=== PATIENT | male | born 1950 | race Caucasian/White ===

== ENCOUNTER 2020-05-30 09:11 | Inpatient (IN) ==
[2020-05-30] MEDS ORDERED: DEXTROSE 50% 25 GM/50 ML VIAL IV PRN (09:20)
[2020-05-30] MEDS ORDERED: GLUCAGON 1 MG VIAL IM PRN (09:20)
[2020-05-30 10:01] LABS: ABG Base Excess 0.2 MMOL/L (-2.5-2.5); ABG HCO3 24.6 MMOL/L (20-26); ABG PCO2 39.9 MM HG (35-48); ABG PH 7.403 (7.35-7.45); ABG PO2 85.3 MM HG (80-95); ABG TCO2 21.4 MMOL/L (23-27)
[2020-05-30] MEDS ORDERED: MORPHINE 4 MG/1 ML VIAL IV PRN (10:55)
[2020-05-30] MEDS ORDERED: NITROGLYCERIN SL 0.4 MG TABLET SL PRN (10:55)
[2020-05-30] MEDS ORDERED: CLORAZEPATE 3.75 MG TABLET PO PRN (10:55)
[2020-05-30] MEDS ORDERED: hydrALAZINE 20 MG/1 ML VIAL IV PRN (10:56)
[2020-05-30 11:29] LABS: Albumin 3.9 G/DL (3.4-5.0); Bilirubin,Total 0.4 MG/DL (0.2-1.0); Calcium 8.9 MG/DL (8.5-10.1); Osmolality,Calculated 278.4 MOS/KG (273-304); Potassium 4.6 MMOL/L (3.5-5.1); Total Protein 7.5 G/DL (6.4-8.2)
[2020-05-30] MEDS: CHLORHEXIDINE 0.12% ORAL RINSE 60 ML BOTTLE SWISH/SPIT SCH ×2 (11:34→20:24)
[2020-05-30] MEDS: CHLORHEXIDINE 4% SOLN 118 ML BOTTLE TOP SCH ×2 (13:40→20:25)
[2020-05-30] MEDS: SODIUM CHLORIDE 0.9% 1,000 ML IV SCH (20:25)
[2020-05-30 23:37] LABS: Basophils % 0.8 % (0.0-0.8); Eosinophils # 0.1 10*3/uL (0.0-0.87); Eosinophils % 1.9 % (0.00-10.9); Hematocrit 37.4 VOL% (42.0-52.0); Hemoglobin 12.5 GM/DL (14.0-18.0); Immature Granulocytes % 0.2 %; Immature Granulocytes Absolute 0.01 #; Lymphocytes # 1.8 10*3/uL (1.4-4.0); Lymphocytes % 36.6 % (21.2-54.2); Mean Corpuscular HGB Conc 33.4 GM/DL (32-36); Mean Corpuscular Volume 88.6 FL (87-102); Monocytes % 12.3 % (1.7-12.7); Neutrophils % 48.2 % (38.7-73.9); Platelet Count 195 T/CUMM (130-400); Red Blood Count 4.22 MC/CUMM (3.8-5.5); Red Cell Distribution Width 13.7 % (9.3-17.3); White Blood Count 4.8 T/CUMM (4-12)
[2020-05-31] MEDS: CHLORHEXIDINE 4% SOLN 118 ML BOTTLE TOP SCH (03:21)
[2020-05-31] MEDS ORDERED: PAPAVERINE 60 MG/2 ML VIAL ONE (05:00)
[2020-05-31] MEDS ORDERED: VANCOMYCIN 1,000 MG VIAL ONE (05:00)
[2020-05-31] MEDS ORDERED: VANCOMYCIN 500 MG VIAL ONE (05:00)
[2020-05-31] MEDS ORDERED: SODIUM CHLORIDE 0.9% 0 ML IV ONE (05:30)
[2020-05-31] MEDS ORDERED: LIDOCAINE 2% 5 ML VIAL ONE ×2 (05:30→11:00)
[2020-05-31] MEDS ORDERED: HEPARIN/NACL 0.9% 2 UNITS/ML 1,000 UNIT/500 ML BAG IV ONE (05:30)
[2020-05-31] MEDS ORDERED: CALCIUM CHLORIDE 1,000 MG/10 ML VIAL IV ONE (05:30)
[2020-05-31] MEDS ORDERED: AMINOCAPROIC ACID 5,000 MG/20 ML VIAL ONE (05:30)
[2020-05-31] MEDS ORDERED: PHENYLEPHRINE DRIP 20 MG/250 ML PREMIX IV ONE (05:30)
[2020-05-31] MEDS ORDERED: SODIUM CHLORIDE 0.9% 250 ML IV ONE (05:30)
[2020-05-31] MEDS ORDERED: SODIUM CHLORIDE 0.9% 1,000 ML IV ONE (05:30)
[2020-05-31] MEDS ORDERED: LACTATED RINGERS 1,000 ML IV ONE (05:30)
[2020-05-31] MEDS ORDERED: VECURONIUM 10 MG VIAL IV ONE (05:30)
[2020-05-31] MEDS ORDERED: SUFentanil 250 MCG/5 ML AMP ONE ×2 (05:31→07:43)
[2020-05-31] MEDS ORDERED: MIDAZOLAM 10 MG/2 ML VIAL ONE ×4 (05:31)
[2020-05-31] MEDS: SODIUM CHLORIDE 0.9% 1,000 ML IV SCH (05:45)
[2020-05-31] MEDS ORDERED: FAMOTIDINE 20 MG TABLET PO ONE (06:00)
[2020-05-31] MEDS ORDERED: DIAZEPAM 5 MG TABLET PO ONE (06:00)
[2020-05-31 07:37] LABS: ABG Base Excess -0.2 MMOL/L (-2.5-2.5); ABG HCO3 24.3 MMOL/L (20-26); ABG PCO2 35.8 MM HG (35-48); ABG PH 7.428 (7.35-7.45); ABG TCO2 20.8 MMOL/L (23-27); Glucose Heart Surgery 97 MG/DL (74-106); Hematocrit Heart Surgery 37.5 PERCENT (42-52); Hemoglobin Heart Surgery 12.2 G/DL (14.0-18.0); Ionized Calcium Arterial 1.14 MMOL/L (1.21-1.46); PCO2 Patient Temp Arterial 35.8 MMHG; PH Patient Temp Arterial 7.428; Patient Temperature 37 CELCIUS; Potassium Heart/CVR 3.6 MMOL/L (3.5-5.1); Sodium Heart/CVR 141 MMOL/L (135-145)
[2020-05-31] MEDS ORDERED: SODIUM BICARBONATE 50 MEQ/50 ML VIAL IV ONE ×2 (07:43→11:01)
[2020-05-31] MEDS ORDERED: CALCIUM CHLORIDE 1,000 MG/10 ML SYRINGE IV ONE (07:44)
[2020-05-31] MEDS ORDERED: POTASSIUM CHLORIDE RIDER 100 ML IV ONE (07:44)
[2020-05-31] MEDS ORDERED: NITROPRUSSIDE 50 MG/2 ML VIAL ONE (07:44)
[2020-05-31] MEDS ORDERED: PHENYLEPHRINE DRIP 40 MG/250 ML PREMIX IV ONE (07:44)
[2020-05-31 07:47] LABS: Bilirubin,Urine Negative (Negative); Blood, Urine Moderate mg/dL (Negative); Glucose,Urine (UA) Negative (Negative); Ketones,Urine Negative (Negative); Nitrite,Urine Negative (Negative); Protein,Urine Negative; RBC,Urine 1 /HPF (0-4); Urine Appearance CLEAR (Clear); Urine Color Straw (Yellow); Urine Specific Gravity 1.004 (1.001-1.035); Urine Urobilinogen < 2.0 EU/DL (0.2-1.0); WBC,Urine 1 /HPF (0-6)
[2020-05-31 09:19] LABS: Hematocrit Heart Surgery 28.8 PERCENT (42-52); Hemoglobin Heart Surgery 9.3 G/DL (14.0-18.0); PH Patient Temp Venous 7.466; PO2 Patient Temp Venous 38.9 MM HG; Potassium Heart/CVR 4.6 MMOL/L (3.5-5.1); VBG Base Excess 0.5 MEQ/L (0-4); VBG HCO3 24.7 MEQ/L (24-28); VBG Oxygen Saturation 84.6 %; VBG PCO2 38.1 MMHG (41-51); VBG PH 7.421; VBG PO2 47.8 MMHG (17-40); VBG Total CO2 22.8 MMOL/L
[2020-05-31 09:52] LABS: Hematocrit Heart Surgery 31.2 PERCENT (42-52); Hemoglobin Heart Surgery 10.1 G/DL (14.0-18.0); PCO2 Patient Temp Venous 32.2 MM HG; PH Patient Temp Venous 7.478; PO2 Patient Temp Venous 36.4 MM HG; Potassium Heart/CVR 4.2 MMOL/L (3.5-5.1); VBG Base Excess 0.9 MEQ/L (0-4); VBG Oxygen Saturation 84.6 %; VBG PCO2 39.1 MMHG (41-51); VBG PH 7.419; VBG PO2 47.9 MMHG (17-40)
[2020-05-31] MEDS ORDERED: SEVOFLURANE 1 UNIT/15 MINUTE INH ONE (09:53)
[2020-05-31] MEDS: CHLORHEXIDINE 0.12% ORAL RINSE 60 ML BOTTLE SWISH/SPIT SCH ×2 (10:07→21:45)
[2020-05-31] MEDS: CEFUROXIME INJ 1,500 MG in SODIUM CHLORIDE 0.9% 100 ML IV ONE ×2 (10:07→11:49)
[2020-05-31 10:22] LABS: Hematocrit Heart Surgery 33.6 PERCENT (42-52); Hemoglobin Heart Surgery 10.9 G/DL (14.0-18.0); PCO2 Patient Temp Venous 39.1 MM HG; PH Patient Temp Venous 7.426; PO2 Patient Temp Venous 44.1 MM HG; Potassium Heart/CVR 4.3 MMOL/L (3.5-5.1); VBG Base Excess 1.4 MEQ/L (0-4); VBG HCO3 25.3 MEQ/L (24-28); VBG Oxygen Saturation 80.5 %; VBG PCO2 39.1 MMHG (41-51); VBG PH 7.426; VBG PO2 44.1 MMHG (17-40); VBG Total CO2 23.2 MMOL/L
[2020-05-31] MEDS ORDERED: methylPREDNISolone SOD SUC 1,000 MG/8 ML VIAL ONE (11:00)
[2020-05-31] MEDS ORDERED: DEXTROSE 5% KCL 20 MEQ 20 MEQ/1,000 ML BAG IV ONE (11:00)
[2020-05-31] MEDS ORDERED: MANNITOL 100 GM/500 ML BAG IV ONE (11:00)
[2020-05-31] MEDS ORDERED: MAGNESIUM SULFATE 5 GM/10 ML VIAL IV ONE (11:00)
[2020-05-31] MEDS ORDERED: ALBUMIN 25% 25 GM/100 ML VIAL IV ONE (11:00)
[2020-05-31 11:01] LABS: ABG Base Excess -0.3 MMOL/L (-2.5-2.5); ABG HCO3 24.2 MMOL/L (20-26); ABG PH 7.394 (7.35-7.45); ABG TCO2 21.1 MMOL/L (23-27); Glucose Heart Surgery 164 MG/DL (74-106); Ionized Calcium Arterial 1.29 MMOL/L (1.21-1.46); PH Patient Temp Arterial 7.394; Patient Temperature 37 CELCIUS; Potassium Heart/CVR 3.9 MMOL/L (3.5-5.1); Sodium Heart/CVR 139 MMOL/L (135-145)
[2020-05-31] MEDS ORDERED: FUROSEMIDE 20 MG/2 ML VIAL ONE (11:01)
[2020-05-31] MEDS ORDERED: PROTAMINE SULFATE 250 MG/25 ML VIAL IV ONE (11:01)
[2020-05-31] MEDS ORDERED: PROTAMINE SULFATE 50 MG/5 ML VIAL IV ONE ×2 (11:01→11:43)
[2020-05-31] MEDS ORDERED: HEPARIN 10,000 UNIT/10 ML VIAL ONE (11:05)
[2020-05-31] MEDS ORDERED: INSULIN REGULAR DRIP 100 ML IV SCH (11:42)
[2020-05-31] MEDS ORDERED: CALCIUM CHLORIDE 1,000 MG/10 ML SYRINGE IV PRN (11:42)
[2020-05-31] MEDS ORDERED: MAGNESIUM SULF RIDER 2 GM in PREMIX 1 EACH IV PRN (11:42)
[2020-05-31] MEDS ORDERED: ACETAMINOPHEN 650 MG SUPP RECTAL PRN (11:42)
[2020-05-31] MEDS ORDERED: PHENYLEPHRINE DRIP 40 MG/250 ML PREMIX IV PRN (11:42)
[2020-05-31] MEDS ORDERED: MAGNESIUM SULF RIDER 4 GM in PREMIX 1 EACH IV PRN (11:42)
[2020-05-31] MEDS ORDERED: SODIUM CHLORIDE 0.45% 1,000 ML IV SCH ×2 (11:42)
[2020-05-31] MEDS ORDERED: MORPHINE 10 MG/1 ML VIAL IV PRN (11:42)
[2020-05-31] MEDS ORDERED: MIDAZOLAM 2 MG/2 ML VIAL IV PRN (11:42)
[2020-05-31] MEDS ORDERED: VECURONIUM 10 MG VIAL IV PRN ×2 (11:42)
[2020-05-31] MEDS ORDERED: NITROPRUSSIDE 100 MG in DEXTROSE 5% 250 ML IV PRN (11:42)
[2020-05-31] MEDS ORDERED: POTASSIUM CHLORIDE RIDER 10 MEQ in PREMIX 1 EACH IV PRN (11:42)
[2020-05-31] MEDS ORDERED: CHLORHEXIDINE 4% SOLN 118 ML BOTTLE TOP PRN (11:42)
[2020-05-31] MEDS ORDERED: DEXTROSE 50% 25 GM/50 ML VIAL IV PRN ×2 (11:42)
[2020-05-31] MEDS ORDERED: ONDANSETRON 4 MG/2 ML VIAL IV PRN (11:42)
[2020-05-31] MEDS ORDERED: INSULIN REGULAR 100 UNIT/ML IV ONE (11:42)
[2020-05-31] MEDS ORDERED: INSULIN REGULAR 100 UNIT/ML IV PRN (11:42)
[2020-05-31] MEDS ORDERED: MORPHINE 4 MG/1 ML VIAL IV PRN (11:42)
[2020-05-31 12:04] LABS: ABG HCO3 23.3 MMOL/L (20-26); ABG PCO2 37.3 MM HG (35-48); ABG PH 7.414 (7.35-7.45); ABG PO2 280.4 MM HG (80-95); ABG TCO2 24.5 MMOL/L (23-27); Glucose Heart Surgery 134 MG/DL (74-106); Hemoglobin Heart Surgery 11.2 G/DL (14.0-18.0); Potassium Heart/CVR 3.4 MMOL/L (3.5-5.1)
[2020-05-31 12:07] LABS: Basophils % 0.5 % (0.0-0.8); Eosinophils % 0.3 % (0.00-10.9); Hematocrit 31.6 VOL% (42.0-52.0); Hemoglobin 10.6 GM/DL (14.0-18.0); Immature Granulocytes % 0.5 %; Immature Granulocytes Absolute 0.03 #; Lymphocytes # 1.3 10*3/uL (1.4-4.0); Lymphocytes % 19.5 % (21.2-54.2); Mean Corpuscular HGB Conc 33.5 GM/DL (32-36); Mean Corpuscular Volume 89.5 FL (87-102); Mean Platelet Volume 8.6 FL (9.6-12.0); Monocytes % 7.1 % (1.7-12.7); Neutrophils % 72.1 % (38.7-73.9); Platelet Count 158 T/CUMM (130-400); Red Blood Count 3.53 MC/CUMM (3.8-5.5); Red Cell Distribution Width 13.6 % (9.3-17.3); White Blood Count 6.5 T/CUMM (4-12)
[2020-05-31 12:18] LABS: INR 1.3; PT Patient Result 13.6 SECS (9.8-11.9); Partial Thromboplastin Time 30.5 SECS (23.9-33.8)
[2020-05-31] MEDS: POTASSIUM CHLORIDE RIDER 20 MEQ in PREMIX 1 EACH IV PRN ×5 (12:20→17:44)
[2020-05-31] MEDS: ALBUMIN 5% 12.5 GM/250 ML VIAL IV PRN ×3 (12:27→16:20)
[2020-05-31 12:30] LABS: CKMB % 6.2 %
[2020-05-31] MEDS: LACTATED RINGERS 250 ML IV PRN ×3 (12:33→14:41)
[2020-05-31 12:34] LABS: Troponin I 3.63 NG/ML (0.00-0.045)
[2020-05-31 12:52] LABS: Albumin 3.5 G/DL (3.4-5.0); Bilirubin,Total 0.9 MG/DL (0.2-1.0); Calcium 8.5 MG/DL (8.5-10.1); Osmolality,Calculated 288.8 MOS/KG (273-304); Potassium 3.5 MMOL/L (3.5-5.1); Total Protein 5.3 G/DL (6.4-8.2)
[2020-05-31 13:38] LABS: ABG Base Excess -0.8 MMOL/L (-2.5-2.5); ABG HCO3 23.8 MMOL/L (20-26); ABG Oxygen Saturation 99.7 % (95-100); ABG PCO2 39.5 MM HG (35-48); ABG PH 7.391 (7.35-7.45); ABG TCO2 21.8 MMOL/L (23-27); Glucose Heart Surgery 166 MG/DL (74-106); Potassium Heart/CVR 4.1 MMOL/L (3.5-5.1)
[2020-05-31] MEDS: MIDAZOLAM 10 MG/2 ML VIAL IV PRN ×2 (14:42→15:27)
[2020-05-31 14:57] LABS: ABG Base Excess -0.9 MMOL/L (-2.5-2.5); ABG HCO3 23.7 MMOL/L (20-26); ABG Oxygen Saturation 99.2 % (95-100); ABG PCO2 40.6 MM HG (35-48); ABG PH 7.381 (7.35-7.45); ABG TCO2 21.7 MMOL/L (23-27); Glucose Heart Surgery 194 MG/DL (74-106); Potassium Heart/CVR 3.6 MMOL/L (3.5-5.1)
[2020-05-31 17:33] LABS: ABG Base Excess -2.1 MMOL/L (-2.5-2.5); ABG HCO3 22.6 MMOL/L (20-26); ABG Oxygen Saturation 98.9 % (95-100); ABG PH 7.339 (7.35-7.45); ABG TCO2 21.7 MMOL/L (23-27); Glucose Heart Surgery 134 MG/DL (74-106); Potassium Heart/CVR 3.7 MMOL/L (3.5-5.1)
[2020-05-31] MEDS: CEFUROXIME INJ 1,500 MG in SODIUM CHLORIDE 0.9% 100 ML IV SCH (19:29)
[2020-05-31 19:45] LABS: ABG Base Excess -1.4 MMOL/L (-2.5-2.5); ABG HCO3 23.3 MMOL/L (20-26); ABG PCO2 42.1 MM HG (35-48); ABG PH 7.363 (7.35-7.45); ABG TCO2 21.8 MMOL/L (23-27); Glucose Heart Surgery 134 MG/DL (74-106); Hemoglobin Heart Surgery 10.4 G/DL (14.0-18.0); Potassium Heart/CVR 4.3 MMOL/L (3.5-5.1)
[2020-05-31 20:18] LABS: CKMB % 4.9 %
[2020-05-31 20:22] LABS: Troponin I 3.78 NG/ML (0.00-0.045)
[2020-05-31] MEDS ORDERED: FUROSEMIDE 40 MG/4 ML VIAL IV ONE (23:17)
[2020-05-31 23:18] LABS: ABG Base Excess -2.2 MMOL/L (-2.5-2.5); ABG HCO3 22.6 MMOL/L (20-26); ABG Oxygen Saturation 98.8 % (95-100); ABG PCO2 39.6 MM HG (35-48); ABG PH 7.369 (7.35-7.45); ABG TCO2 20.8 MMOL/L (23-27); Glucose Heart Surgery 162 MG/DL (74-106); Hematocrit Heart Surgery 31.9 PERCENT (42-52); Hemoglobin Heart Surgery 10.3 G/DL (14.0-18.0); Potassium Heart/CVR 4.2 MMOL/L (3.5-5.1)
[2020-05-31 23:59] LABS: ABG HCO3 22.8 MMOL/L (20-26); ABG Oxygen Saturation 98.3 % (95-100); ABG PCO2 38.1 MM HG (35-48); ABG PH 7.384 (7.35-7.45); ABG TCO2 20.6 MMOL/L (23-27); Glucose Heart Surgery 167 MG/DL (74-106); Hematocrit Heart Surgery 32.3 PERCENT (42-52); Hemoglobin Heart Surgery 10.4 G/DL (14.0-18.0); Potassium Heart/CVR 4.1 MMOL/L (3.5-5.1)
[2020-06-01 05:06] LABS: Basophils % 0.1 % (0.0-0.8); Hematocrit 30.1 VOL% (42.0-52.0); Immature Granulocytes % 0.5 %; Immature Granulocytes Absolute 0.05 #; Lymphocytes # 0.4 10*3/uL (1.4-4.0); Lymphocytes % 3.8 % (21.2-54.2); Mean Corpuscular HGB Conc 33.2 GM/DL (32-36); Mean Corpuscular Volume 89.6 FL (87-102); Mean Platelet Volume 9.1 FL (9.6-12.0); Monocytes % 5.2 % (1.7-12.7); Neutrophils % 90.4 % (38.7-73.9); Platelet Count 185 T/CUMM (130-400); Red Blood Count 3.36 MC/CUMM (3.8-5.5); Red Cell Distribution Width 13.8 % (9.3-17.3); White Blood Count 10.2 T/CUMM (4-12)
[2020-06-01 05:10] LABS: Band Neutrophils 4 % (0-10); Hypochromasia 1+; Lymphocytes 4 % (20-55); Microcytosis 1+; Ovalocytes Slight; Platelet Estimate Adequate; Segmented Neutrophils 88 % (50-85); Total Cells Counted 100
[2020-06-01 05:23] LABS: ABG Base Excess -0.9 MMOL/L (-2.5-2.5); ABG HCO3 23.6 MMOL/L (20-26); ABG Oxygen Saturation 98.9 % (95-100); ABG PCO2 37.9 MM HG (35-48); ABG PH 7.401 (7.35-7.45); ABG TCO2 21.4 MMOL/L (23-27); Glucose Heart Surgery 114 MG/DL (74-106); Hematocrit Heart Surgery 31.3 PERCENT (42-52); Hemoglobin Heart Surgery 10.1 G/DL (14.0-18.0); Potassium Heart/CVR 3.9 MMOL/L (3.5-5.1)
[2020-06-01 05:25] LABS: CKMB % 2.5 %
[2020-06-01 05:32] LABS: Troponin I 3.61 NG/ML (0.00-0.045)
[2020-06-01 06:03] LABS: Albumin 3.9 G/DL (3.4-5.0); Bilirubin,Direct 0.26 MG/DL (0.0-0.20); Bilirubin,Total 1.2 MG/DL (0.2-1.0); Calcium 8.6 MG/DL (8.5-10.1); Potassium 4.1 MMOL/L (3.5-5.1)
[2020-06-01] MEDS: CEFUROXIME INJ 1,500 MG in SODIUM CHLORIDE 0.9% 100 ML IV SCH ×2 (06:27→18:12)
[2020-06-01] MEDS: oxyCODONE/ACETAMINOPHEN 5-325 MG TABLET PO PRN ×4 (07:49→21:14)
[2020-06-01] MEDS ORDERED: DEXTROSE 50% 25 GM/50 ML VIAL IV PRN (09:36)
[2020-06-01] MEDS ORDERED: ACETAMINOPHEN 325 MG TABLET PO PRN (09:36)
[2020-06-01] MEDS ORDERED: SODIUM CHLOR 0.45% KCL 20 MEQ 20 MEQ/1,000 ML BAG IV SCH (09:36)
[2020-06-01] MEDS ORDERED: MAGNESIUM SULF RIDER 2 GM in PREMIX 1 EACH IV PRN (09:36)
[2020-06-01] MEDS ORDERED: MAGNESIUM SULF RIDER 4 GM in PREMIX 1 EACH IV PRN (09:36)
[2020-06-01] MEDS ORDERED: GLUCAGON 1 MG VIAL IM PRN (09:36)
[2020-06-01] MEDS ORDERED: ALUMINUM/MAGNES/SIMETH MAX STR 30 ML UDCUP PO PRN (09:36)
[2020-06-01] MEDS ORDERED: ONDANSETRON 4 MG/2 ML VIAL IV PRN (09:36)
[2020-06-01] MEDS ORDERED: MAGNESIUM HYDROXIDE SUSP 30 ML UDCUP PO PRN (09:36)
[2020-06-01] MEDS: CHLORHEXIDINE 0.12% ORAL RINSE 60 ML BOTTLE SWISH/SPIT SCH ×3 (09:55→21:08)
[2020-06-01] MEDS: FERROUS SULFATE 325 MG TABLET PO SCH (09:56)
[2020-06-01] MEDS: DOCUSATE SODIUM 100 MG CAPSULE PO SCH (09:56)
[2020-06-01] MEDS: ASPIRIN EC 325 MG TABLET PO SCH (09:56)
[2020-06-01] MEDS: PANTOPRAZOLE 40 MG TABLET PO SCH (09:56)
[2020-06-01] MEDS: INSULIN REGULAR 100 UNIT/ML SUBCUT SCH ×3 (12:30→21:08)
[2020-06-01 13:14] LABS: CKMB % 1.4 %
[2020-06-01 13:17] LABS: Troponin I 2.5 NG/ML (0.00-0.045)
[2020-06-01] MEDS: ATORVASTATIN 20 MG TABLET PO SCH (21:08)
[2020-06-01] MEDS: ZALEPLON 5 MG CAPSULE PO PRN (21:14)
[2020-06-02 05:36] LABS: Basophils % 0.1 % (0.0-0.8); Hematocrit 27.8 VOL% (42.0-52.0); Hemoglobin 9.1 GM/DL (14.0-18.0); Immature Granulocytes % 0.7 %; Immature Granulocytes Absolute 0.09 #; Lymphocytes % 7.3 % (21.2-54.2); Mean Corpuscular HGB Conc 32.7 GM/DL (32-36); Mean Corpuscular Volume 91.4 FL (87-102); Mean Platelet Volume 9.5 FL (9.6-12.0); Neutrophils % 82.9 % (38.7-73.9); Platelet Count 178 T/CUMM (130-400); Red Blood Count 3.04 MC/CUMM (3.8-5.5); White Blood Count 13.2 T/CUMM (4-12)
[2020-06-02 05:59] LABS: Albumin 3.3 G/DL (3.4-5.0); Bilirubin,Direct 0.22 MG/DL (0.0-0.20); Bilirubin,Total 0.6 MG/DL (0.2-1.0); Calcium 8.5 MG/DL (8.5-10.1); Osmolality,Calculated 279.7 MOS/KG (273-304); Potassium 4.5 MMOL/L (3.5-5.1); Total Protein 6.1 G/DL (6.4-8.2)
[2020-06-02] MEDS ORDERED: FUROSEMIDE 40 MG/4 ML VIAL IV ONE (06:00)
[2020-06-02 06:02] LABS: Alanine Aminotransferase 33 U/L (16-61); Albumin 3.3 G/DL (3.4-5.0); Alkaline Phosphatase 47 U/L (45-117); Aspartate Amino Transferase 41 U/L (0-37); Total Protein 5.8 G/DL (6.4-8.2)
[2020-06-02] MEDS: INSULIN REGULAR 100 UNIT/ML SUBCUT SCH ×4 (08:05→21:27)
[2020-06-02] MEDS: CHLORHEXIDINE 0.12% ORAL RINSE 60 ML BOTTLE SWISH/SPIT SCH ×2 (09:03→21:24)
[2020-06-02] MEDS: PANTOPRAZOLE 40 MG TABLET PO SCH (09:03)
[2020-06-02] MEDS: ASPIRIN EC 325 MG TABLET PO SCH (09:03)
[2020-06-02] MEDS: FERROUS SULFATE 325 MG TABLET PO SCH (09:04)
[2020-06-02] MEDS: DOCUSATE SODIUM 100 MG CAPSULE PO SCH (09:07)
[2020-06-02] MEDS: oxyCODONE/ACETAMINOPHEN 5-325 MG TABLET PO PRN ×3 (10:11→21:22)
[2020-06-02] MEDS: carvediloL 3.125 MG TABLET PO SCH (21:23)
[2020-06-02] MEDS: ZALEPLON 5 MG CAPSULE PO PRN (21:23)
[2020-06-02] MEDS: ATORVASTATIN 20 MG TABLET PO SCH (21:23)
[2020-06-03 05:28] LABS: Basophils % 0.1 % (0.0-0.8); Eosinophils % 0.1 % (0.00-10.9); Hematocrit 26.8 VOL% (42.0-52.0); Hemoglobin 8.6 GM/DL (14.0-18.0); Immature Granulocytes % 0.5 %; Immature Granulocytes Absolute 0.04 #; Lymphocytes # 1.4 10*3/uL (1.4-4.0); Lymphocytes % 17.1 % (21.2-54.2); Mean Corpuscular HGB Conc 32.1 GM/DL (32-36); Mean Corpuscular Volume 93.1 FL (87-102); Mean Platelet Volume 9.2 FL (9.6-12.0); Neutrophils % 71.2 % (38.7-73.9); Platelet Count 146 T/CUMM (130-400); Red Blood Count 2.88 MC/CUMM (3.8-5.5); Red Cell Distribution Width 13.9 % (9.3-17.3); White Blood Count 8.1 T/CUMM (4-12)
[2020-06-03 05:49] LABS: Alanine Aminotransferase 48 U/L (16-61); Albumin 3.1 G/DL (3.4-5.0); Alkaline Phosphatase 54 U/L (45-117); Aspartate Amino Transferase 37 U/L (0-37); Bilirubin,Indirect 0.3 MG/DL (0.0-1.0); Total Protein 5.9 G/DL (6.4-8.2)
[2020-06-03 05:50] LABS: Troponin I 0.804 NG/ML (0.00-0.045)
[2020-06-03 05:54] LABS: Bilirubin,Direct 0.2 MG/DL (0.0-0.20); Calcium 7.9 MG/DL (8.5-10.1); Osmolality,Calculated 281.4 MOS/KG (273-304); Potassium 3.8 MMOL/L (3.5-5.1); Total Protein 5.4 G/DL (6.4-8.2)
[2020-06-03] MEDS: POLYETHYLENE GLYCOL POWDER 17 GM PACK PO SCH (08:50)
[2020-06-03] MEDS: oxyCODONE/ACETAMINOPHEN 5-325 MG TABLET PO PRN ×3 (08:51→20:36)
[2020-06-03] MEDS: ASPIRIN EC 325 MG TABLET PO SCH (08:51)
[2020-06-03] MEDS: FERROUS SULFATE 325 MG TABLET PO SCH (08:52)
[2020-06-03] MEDS: DOCUSATE SODIUM 100 MG CAPSULE PO SCH (08:52)
[2020-06-03] MEDS: POTASSIUM CHLORIDE 20 MEQ TABLET PO PRN ×2 (08:52→10:13)
[2020-06-03] MEDS: carvediloL 3.125 MG TABLET PO SCH ×2 (08:52→20:36)
[2020-06-03] MEDS: PANTOPRAZOLE 40 MG TABLET PO SCH (08:52)
[2020-06-03] MEDS: CHLORHEXIDINE 0.12% ORAL RINSE 60 ML BOTTLE SWISH/SPIT SCH ×2 (08:53→20:36)
[2020-06-03] MEDS ORDERED: SODIUM CHLORIDE 0.65% NASAL SPRAY 45 ML BOTTLE BOTH NARES PRN (09:16)
[2020-06-03] MEDS: ATORVASTATIN 20 MG TABLET PO SCH (20:36)
[2020-06-03] MEDS: ZALEPLON 5 MG CAPSULE PO PRN (20:36)
[2020-06-04 05:15] LABS: Basophils % 0.2 % (0.0-0.8); Eosinophils # 0.1 10*3/uL (0.0-0.87); Eosinophils % 1.2 % (0.00-10.9); Hematocrit 29.3 VOL% (42.0-52.0); Hemoglobin 9.6 GM/DL (14.0-18.0); Immature Granulocytes % 0.5 %; Immature Granulocytes Absolute 0.03 #; Lymphocytes % 29.9 % (21.2-54.2); Mean Corpuscular HGB Conc 32.8 GM/DL (32-36); Mean Corpuscular Volume 91.6 FL (87-102); Mean Platelet Volume 9.2 FL (9.6-12.0); Monocytes % 9.7 % (1.7-12.7); Neutrophils % 58.5 % (38.7-73.9); Platelet Count 213 T/CUMM (130-400); Red Cell Distribution Width 13.8 % (9.3-17.3); White Blood Count 6.6 T/CUMM (4-12)
[2020-06-04 05:26] LABS: Calcium 8.3 MG/DL (8.5-10.1); Osmolality,Calculated 280.4 MOS/KG (273-304)
[2020-06-04] MEDS: CHLORHEXIDINE 0.12% ORAL RINSE 60 ML BOTTLE SWISH/SPIT SCH ×2 (08:18→21:39)
[2020-06-04] MEDS: carvediloL 3.125 MG TABLET PO SCH ×2 (08:18→21:36)
[2020-06-04] MEDS: POLYETHYLENE GLYCOL POWDER 17 GM PACK PO SCH (08:18)
[2020-06-04] MEDS: ASPIRIN EC 325 MG TABLET PO SCH (08:18)
[2020-06-04] MEDS: PANTOPRAZOLE 40 MG TABLET PO SCH (08:18)
[2020-06-04] MEDS: DOCUSATE SODIUM 100 MG CAPSULE PO SCH (08:18)
[2020-06-04] MEDS: FERROUS SULFATE 325 MG TABLET PO SCH (08:18)
[2020-06-04] MEDS: amLODIPine 5 MG TABLET PO SCH (08:20)
[2020-06-04] MEDS: oxyCODONE/ACETAMINOPHEN 5-325 MG TABLET PO PRN ×3 (08:23→21:37)
[2020-06-04] MEDS: ATORVASTATIN 20 MG TABLET PO SCH (21:36)
[2020-06-04] MEDS: ZALEPLON 5 MG CAPSULE PO PRN (21:37)
[2020-06-05 05:42] LABS: Basophils % 0.2 % (0.0-0.8); Eosinophils # 0.1 10*3/uL (0.0-0.87); Eosinophils % 2.4 % (0.00-10.9); Hematocrit 27.9 VOL% (42.0-52.0); Immature Granulocytes % 0.6 %; Immature Granulocytes Absolute 0.03 #; Lymphocytes # 1.2 10*3/uL (1.4-4.0); Lymphocytes % 24.1 % (21.2-54.2); Mean Corpuscular HGB Conc 32.3 GM/DL (32-36); Mean Corpuscular Volume 92.4 FL (87-102); Mean Platelet Volume 9.1 FL (9.6-12.0); Monocytes % 13.2 % (1.7-12.7); Neutrophils % 59.5 % (38.7-73.9); Platelet Count 221 T/CUMM (130-400); Red Blood Count 3.02 MC/CUMM (3.8-5.5); Red Cell Distribution Width 13.5 % (9.3-17.3); White Blood Count 4.9 T/CUMM (4-12)
[2020-06-05 06:22] LABS: Alanine Aminotransferase 85 U/L (16-61); Albumin 2.7 G/DL (3.4-5.0); Alkaline Phosphatase 86 U/L (45-117); Aspartate Amino Transferase 39 U/L (0-37); Bilirubin,Indirect 0.7 MG/DL (0.0-1.0); Blood Urea Nitrogen 17 MG/DL (7-18); Calcium 8.8 MG/DL (8.5-10.1); Carbon Dioxide 27 MMOL/L (21-32); Estimated Glom Filtration Rate 90 ML/MIN; Glucose 94 MG/DL (74-106); Osmolality,Calculated 282.3 MOS/KG (273-304); Potassium 4.1 MMOL/L (3.5-5.1); Sodium 141 MMOL/L (136-145); Total Protein 5.8 G/DL (6.4-8.2)
[2020-06-05 06:24] LABS: Troponin I 0.292 NG/ML (0.00-0.045)
[2020-06-05 07:55] VITALS: BP 118/67
[2020-06-05] MEDS: oxyCODONE/ACETAMINOPHEN 5-325 MG TABLET PO PRN (08:38)
[2020-06-05] MEDS: FERROUS SULFATE 325 MG TABLET PO SCH (08:39)
[2020-06-05] MEDS: ASPIRIN EC 325 MG TABLET PO SCH (08:39)
[2020-06-05] MEDS: DOCUSATE SODIUM 100 MG CAPSULE PO SCH (08:39)
[2020-06-05] MEDS: carvediloL 3.125 MG TABLET PO SCH (08:39)
[2020-06-05] MEDS: amLODIPine 5 MG TABLET PO SCH (08:39)
[2020-06-05] MEDS: PANTOPRAZOLE 40 MG TABLET PO SCH (08:39)
[2020-06-05] MEDS: CHLORHEXIDINE 0.12% ORAL RINSE 60 ML BOTTLE SWISH/SPIT SCH (08:40)
[2020-06-05] MEDS: POLYETHYLENE GLYCOL POWDER 17 GM PACK PO SCH (10:04)
== END 2020-06-05 11:21 | disposition home health service (06) | DRG 236 ==
LOC: N.5E 09:11 → N.CVR 05-31 11:19 → N.TELES 06-01 18:32